=== PATIENT | female | born 1950 | race Caucasian/White ===

== ENCOUNTER 2016-08-09 18:28 | Emergency (ER) | payer OTHER ==
[2016-08-09] MEDS ORDERED: HYDROmorphone HCL/PF 1 MG/ML DISP.SYRIN IVP ONE (19:11)
[2016-08-09] MEDS ORDERED: ONDANSETRON HCL/PF 4 MG/ 2ML VIAL IVP ONE (19:11)
[2016-08-09] MEDS ORDERED: 0.9 % SODIUM CHLORIDE 1,000 ML IV ONE (19:11)
[2016-08-09 19:19] LABS: BASOPHILS % 0.4 (0.0-1.5); EOSINOPHILS % 2.2 % (0.0-6.8); LYMPHOCYTES # 1.9 # k/uL (0.6-4.0); MEAN CORPUSCULAR HEMOGLOBIN 29.3 pg (28.0-34.0); MONOCYTES # 0.3 # k/uL (0.0-0.9); NEUTROPHILS # 3.2 # k/uL (1.4-7.7)
[2016-08-09] MEDS ORDERED: 0.9 % SODIUM CHLORIDE 1,000 ML IV SCH (19:30)
[2016-08-09 19:31] LABS: eGFR (African) > 60; eGFR (Non-African) > 60
[2016-08-09] MEDS ORDERED: TAMSULOSIN HCL 0.4 MG CAP.ER.24H PO ONE (20:45)
[2016-08-09] MEDS ORDERED: PHENAZOPYRIDINE HCL 200 MG TABLET PO ONE (20:46)
[2016-08-09] MEDS ORDERED: KETOROLAC TROMETHAMINE 30 MG/1ML VIAL IVP ONE (20:46)
[2016-08-09 22:37] VITALS: BP 138/70
[2016-08-10 06:05] LABS: APPEARANCE,URINE CLEAR (CLEAR); COLOR,URINE YELLOW (YELLOW); OCCULT BLOOD,URINE 1+ (NEGATIVE); UROBILINOGEN URINE 0.2 Eu (0.2-1.0)
--- NOTE | 2016-08-10 07:31 | ED Physician Documentation ---
Abdominal Pain - HISTORIAN Historian: patient - HPI Stated Complaint: RUQ pain Chief Complaint: Abdominal Pain Additonal Information: acute onset Onset: days ago (1) Duration: sudden-onset Timing: still present Context: denies: out of country travel, bad food, recent trauma Severity: moderate Quality: sharp Front/Back of Body, Lg (Color): 1 - pain Associated Symptoms: none Exacerbated by: movements, deep breaths Relieved by: remaining still Further Comments: no - ROS CONST: no problems GI/: none CVS/RESP: none EYES/ENT: none MS/SKIN/LYMPH: none NEURO/PSYCH: none - SOCIAL HX Smoking History: quit greater than 1 year Alcohol Use: none Drug Use: none - FAMILY HX Family History: no significant history - PAST HX Past History: kidney stones Ischemic Bowel Risk Factors: none Other History: none Surgeries/Procedures: none Immunizations: referred to PCP Allergies/Adverse Reactions: Allergies Allergy/AdvReac Type Severity Reaction Status Date / Time latex Allergy Verified 08/09/16 19:09 Penicillins AdvReac Unknown Hives Verified 08/09/16 19:09 Sulfa (Sulfonamide AdvReac Unknown Hives Verified 08/09/16 19:09 Antibiotics) - VITAL SIGNS Vital Signs: Vital Signs Temp Pulse Resp BP Pulse Ox 99.7 F H 787 H 18 138/70 99 08/09/16 21:05 08/09/16 21:05 08/09/16 21:05 08/09/16 21:05 08/09/16 19:04 - REVIEWED ASSESSMENTS Nursing Assessment Reviewed: Yes Vitals Reviewed: Yes Progress - Results/Orders Results/Orders: cbc, cmp, ua, ct abdomen, amylase ordered - Progress Progress: Pt. given 1 liter of NS, 0.4 mg Flomax p.o., 200 mg Pyridium p.o., Toradol 30 mg ivp, 4 mg Zofran ivp and 1 mg Dilaudid ivp in er. Critical Care Note - Critical Care Note Total Time (mins): 0 ED Results Lab/Radiology - Lab Results Lab Results: Lab Results 08/09/16 08/09/1617 20:41 19:15 19:15 WBC RBC Hgb Hct MCV MCH MCHC RDW Plt Count Neut % (Auto) Lymph % (Auto) [place] % (Auto) Eos % (Auto) Baso % (Auto) Neut # Lymph # [place] # Eos # Baso # Reactive Lymphs % Reactive Lymphs # PT 10.3 Seconds Seconds (9.7-11.5) INR 1.0 (0.9-1.1) APTT 23.8 Seconds L Seconds (24.5-32.8) Sodium 143 mmol/L mmol/L (136-145) Potassium 3.3 mmol/L L mmol/L (3.5-5.0) Chloride 104 mmol/L mmol/L (98-110) Carbon Dioxide 31 mmol/L mmol/L (20-32) BUN 19 mg/dL mg/dL (10-26) Creatinine 0.7 mg/dL mg/dL (0.4-1.5) Estimated Creat Clear 68 Est GFR ( Amer) > 60 (60 - ) Est GFR (Non-Af Amer) > 60 (60 - ) Glucose 124 mg/dL H mg/dL (70-99) Calcium 9.8 mg/dL mg/dL (8.5-10.5) Total Bilirubin 0.3 mg/dL mg/dL (0.2-1.2) AST 23 U/L U/L (0-41) ALT 15 U/L U/L (0-45) Alkaline Phosphatase 61 U/L U/L (46-116) Total Protein 7.0 g/dL g/dL (6.0-8.5) Albumin 4.5 g/dL g/dL (3.0-5.5) Amylase 45 U/L U/L (20-104) Urine Color Yellow (YELLOW) Urine Appearance Clear (CLEAR) Urine pH 7.0 (5.0 - 8.0) Ur Specific [place] 1.010 (1.010-1.030) Urine Protein Negative mg/dL mg/dL (NEGATIVE) Urine Ketones Negative mg/dL mg/dL (NEGATIVE) Urine Occult Blood 1+ H (NEGATIVE) Urine Nitrite Negative (NEGATIVE) Urine Bilirubin Negative (NEGATIVE) Urine Urobilinogen 0.2 Eu Eu (0.2-1.0) Ur Leukocyte Esterase Negative (NEGATIVE) Urine Glucose Negative mg/dL mg/dL (NEGATIVE) 08/09/16 19:15 WBC 5.60 K/ul K/ul (4.00-12.00) RBC 4.13 M/ul M/ul (3.90-5.20) Hgb 12.1 g/dL g/dL (12.0-16.0) Hct 36.6 % % (34.5-46.5) MCV 88.8 fl fl (80.0-100.0) MCH 29.3 pg pg (28.0-34.0) MCHC 33.0 g/dL g/dL (30.0-36.0) RDW 13.0 % % (11.3-14.3) Plt Count 198 K/mm3 K/mm3 (130-400) Neut % (Auto) 56.0 % % (39.0-79.0) Lymph % (Auto) 34.3 % % (16.0-50.0) [place] % (Auto) 5.0 % % (0.0-11.0) Eos % (Auto) 2.2 % % (0.0-6.8) Baso % (Auto) 0.4 (0.0-1.5) Neut # 3.2 # k/uL # k/uL (1.4-7.7) Lymph # 1.9 # k/uL # k/uL (0.6-4.0) [place] # 0.3 # k/uL # k/uL (0.0-0.9) Eos # 0.1 # k/uL # k/uL (0.0-0.6) Baso # 0.0 # k/uL # k/uL (0.0-0.5) Reactive Lymphs % 2.1 % % (0.0-5.0) Reactive Lymphs # 0.1 # k/uL # k/uL (0.0-0.8) PT INR APTT Sodium Potassium Chloride Carbon Dioxide BUN Creatinine Estimated Creat Clear Est GFR ( Amer) Est GFR (Non-Af Amer) Glucose Calcium Total Bilirubin AST ALT Alkaline Phosphatase Total Protein Albumin Amylase Urine Color Urine Appearance Urine pH Ur Specific [place] Urine Protein Urine Ketones Urine Occult Blood Urine Nitrite Urine Bilirubin Urine Urobilinogen Ur Leukocyte Esterase Urine Glucose - Radiology Radiology Impressions: ct show 3 mm right sided renal lithiasis with mild hydroureter - Orders Orders: ED Orders Category Date Time Status Place Saline Lock/IV Now Care 08/09/16 19:[address] ABD & PELVIS W/ CON Routine Exams 08/09/16 19:13 Taken AMYLASE Routine Lab 08/09/16 19:15 Completed CBC/PLATELET/DIFF Routine Lab 08/09/16 19:15 Completed CMP Routine Lab 08/09/16 19:15 Completed PT-INR Routine Lab 08/09/16 19:15 Completed PTT Routine Lab 08/09/16 19:15 Completed UA MACRO DIP ONLY Routine Lab 08/09/16 20:41 Completed 0.9 % Sodium Chloride [Normal Saline] 1,000 ml Med 08/09/16 19:30 Discontinued IV .Q1H 0.9 % Sodium Chloride [Normal Saline] 1,000 ml Med 08/09/16 19:11 Discontinued IV Q2H HYDROmorphone HCL/PF [Dilaudid] Med 08/09/16 19:11 Discontinued 1 mg IVP NOW ONE Ketorolac Tromethamine [Toradol] Med 08/09/16 20:46 Discontinued 30 mg IVP NOW ONE Ondansetron HCl/Pf [Zofran 4 mg/2 ml] Med 08/09/16 19:11 Discontinued 8 mg IVP NOW ONE Phenazopyridine HCl [Pyridium] Med 08/09/16 20:46 Discontinued 200 mg PO NOW ONE Tamsulosin HCl [Flomax] Med 08/09/16 20:45 Discontinued 0.4 mg PO NOW ONE Abdominal Pain Physical Exam - Physical Exam General Appearance: moderate distress EENT: eye inspection normal, ENT inspection normal, pharynx normal, no signs of dehydration, RAMIRO, no nystagmus, TM's nml NECK: normal inspection, thyroid normal, supple RESPIRATORY: no resp distress, chest non-tender, breath sounds normal CVS: reg rate & rhythm, heart sounds normal, equal pulses, no murmur, no gallop , PMI nml ABDOMEN: soft, no organomegaly, normal bowel sounds, tenderness (right upper quadrant). No: rigid BACK: normal inspection, no CVA tenderness SKIN: warm/dry, normal color EXTREMITIES: non-tender, normal range of motion, no evidence of injury, no edema , edema NEURO: oriented X3, CN's nml as tested, motor nml, sensation nml, mood/affect nml, cognition normal Vital Signs: Vital Signs Temp Pulse Resp BP Pulse Ox 99.7 F H 787 H 18 138/70 99 08/09/16 21:05 08/09/16 21:05 08/09/16 21:05 08/09/16 21:05 08/09/16 19:04 Discharge Clincal Impression: Kidney stone Referrals: Madyson Snyder MD [Primary Care Provider] - 2 Days Comments: Discharged home with scripts for: toradol 10 mg # 12 1 pill 4x/day, flomax 0.4 mg # 3 1 pill daily, pyridium 200 mg #15 1 pill 3x/day. Condition: Stable Disposition: 01 HOME, SELF-CARE Decision to Admit: NO Decision Time: 21:00
--- NOTE | 2016-08-10 11:13 | Diagnostic Imaging Report ---
RIDDHI DON [facility] [address] [facility].[address] [address] Report Submission Date: Aug 09, 2016 8:22:45 PM CRISIS SPECIALIST Patient Study Name: TARSHA WATSON Date: Aug 09, 2016 8:02:49 PM CRISIS SPECIALIST Modality Type: CT\SR Gender: F Description: CT ABD & PELVIS W/ CON : 54 Institution: [facility] Physician: RIDDHI DON CT abdomen and pelvis with contrast. History:RIGHT SIDED ABDOMINAL PAIN Technique: Transaxial computed tomographic images of the abdomen and pelvis were obtained following administration of intravenous contrast according to standard protocol. Findings: The lung bases are clear. The heart size is normal. There is a 2.9 cm mass within the inferior aspect of the right breast, only partially imaged. The liver, gallbladder, pancreas, spleen, and adrenal glands are normal. There is a 3 mm calculus at the right ureterovesicular junction resulting in right hydroureter and hydronephrosis. Additional scattered small 2 to 3 mm calculus and present within the right renal pelvis and intrarenal calyces. The left kidney is largely unremarkable tiny 5 mm cyst noted. There is evidence of previous colectomy with diverting ostomy in the right lower quadrant. No bowel dilation or obstruction. There is atherosclerosis of the aorta. No adenopathy is present. There is no free fluid. The uterus is absent. Bone windows filled and demonstrate evidence of suspicious lytic or blastic lesion. Impression: 1. 3 mm right ureterovesicular junction calculus resulting in right hydroureter and hydronephrosis. 2. Additional right small intrarenal calculi noted. 3. 2.9 cm right breast mass, partially imaged, clinical examination and mammographic correlation recommended. 4. Status post colectomy with a diverting right lower quadrant ostomy. Electronically signed on Aug 09, 2016 8:22:45 PM CRISIS SPECIALIST by: Jose FARIA
== END 2016-08-09 21:05 | disposition home or self-care (01) ==
LOC: ED 18:28
DX: N20.0 Calculus of kidney (principal)
CPT/HCPCS: 74177; 80053; 81002; 82150; 85025; 85610; 85730; J1170; J1885; J2405; J7030; Q9966; 96361; 96374; 96375; 99283; 99284; S1016

== ENCOUNTER 2016-08-23 09:50 | Outpatient (CLI) | payer OTHER ==
--- NOTE | 2016-08-23 16:02 | Diagnostic Imaging Report ---
MELANIE GATES [facility] [address] [facility] [address] [place], [place]. [address] Report Submission Date: Aug 23, 2016 3:23:27 PM CATTLE EXAMINER Patient Study Name: TARSHA WATSON Date: Aug 23, 2016 10:10:18 AM CATTLE EXAMINER Modality Type: CT\SR Gender: F Description: CT ABD & PELVIS W/O CO : 54 Institution: [facility] Physician: MELANIE GATES Computed tomography of the abdomen and pelvis without contrast History: Followup kidney stones and obstructive uropathy Findings: Transverse abdomen and pelvis sections are obtained without contrast and are compared to the August 09, 2016 scan. A right breast implant is partially visualized. At least 5 right renal stones are present, the largest measuring 4 mm in maximal dimension. Right hydroureteronephrosis has resolved. The liver, adrenals, pancreas, left kidney, spleen, and mesenteric structures are normal. The gallbladder is partially contracted. Mild aortoiliac atherosclerosis, colectomy, and ileostomy are edema noted. Pelvic sections reveal interval passage of a right ureterovesical junction stone. Hysterectomy has been performed. The urinary bladder is decompressed. Impression: 1. Interval passage of obstructing right ureterovesical junction stone with resolution of right hydroureteronephrosis. 2. Right nephrolithiasis. 3. Postoperative changes as described. Electronically signed on Aug 23, 2016 3:23:27 PM CATTLE EXAMINER by: Cesar FARIA
== END 2016-08-23 09:52 ==
LOC: RAD 09:50
PROVIDERS: ATTEND Family Medicine
DX: N20.0 Calculus of kidney (principal)
CPT/HCPCS: 74176

== ENCOUNTER 2017-05-05 10:07 | Emergency (ER) | payer OTHER ==
--- NOTE | 2017-05-05 10:45 | ED Physician Documentation ---
Lower Extremity Problem - HISTORIAN Historian: patient - HPI Stated Complaint: Left hip pain Chief Complaint: Lower Extremity Problem Additional Information: severe pain lt hip and pelvis. pt has chronic low back and hip/pelvic pain went to chiropractor 04-29-17 had exq uisite lpain w/tx worse afterward-now unable walk or stand w/o pain. pt sees chiro freq and he usually does good job Location of Injury: L hip, other (pelvis) Timing: still present, persistent since (chiro tx has been worse) Duration: sudden-Onset (acute but chronic beforehand-takes 1/4 of [employer] 5/325 w/ o much help) Severity: moderate Quality: pain, tenderness. denies: swelling, numbness, tingling Exacerbated By: walking, movement (and palpation-includes palp of hip and pelvis both on pelvic stretch and palp pubes) Associated Symptoms: denies: chest pain, shortness of breath, rapid heart rate - ROS CONST: no problems CVS/RESP: none. denies: chest pain, shortness of breath, cough GI/: none NERUO/PSYCH: difficulty walking, anxiety. 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 disease, diabetes Type 1 Allergies/Adverse Reactions: Allergies Allergy/AdvReac Type Severity Reaction Status Date / Time latex Allergy Verified 05/05/17 10:25 Penicillins AdvReac Unknown Hives Verified 05/05/17 10:25 Sulfa (Sulfonamide AdvReac Unknown Hives Verified 05/05/17 10:25 Antibiotics) - SOCIAL HX Smoking History: non-smoker Alcohol Use: rarely Drug Use: none - FAMILY HX Family History: no significant history - VITAL SIGNS Vital Signs: Vital Signs Temp Pulse Resp BP Pulse Ox 98.4 F 90 19 152/80 98 05/05/17 10:28 05/05/17 10:28 05/05/17 10:28 05/05/17 10:28 05/05/17 10:28 - REVIEWED ASSESSMENTS Nursing Assessment Reviewed: Yes Vitals Reviewed: Yes ED Results Lab/Radiology - Radiology Radiology Impressions: rad says no fracture but if not sig better see ortho and suggest mri - Orders Orders: ED Orders Category Date Time Status CT PELVIS W/O CONTRAST Stat Exams 05/05/17 Taken Ketorolac Tromethamine [Toradol] Med 05/05/17 11:09 Discontinued 60 mg .ROUTE .STK-MED ONE Lower Extremity Problem - EXAM General Appearance: moderate distress Hips: left hip: non-tender Neuro/Tendon: normal sensation, normal motor functions, no evidence tendon injury RESPIRATORY: no resp distress, chest non-tender, breath sounds normal. No: wheezes, rales, rhonchi CVS: reg rate & rhythm, heart sounds normal, PMI nml, no JVD JOINT: joints nml (xc lt hip) VASCULAR: no vascular compromise NEURO/PSYCH: oriented X3, sensation nml, mood/affect nml SKIN: warm/dry, normal color. No: cyanosis, diaphoresis, jaundice BACK: no CVA tenderness (liza lt lumbar) Discharge Clincal Impression: lt hip and pervic pain-poss fx Referrals: Sharmila Hutchinson, PRN [Primary Care Provider] - 2 Days Comments: home ibu 600 tid w/ mylanta and after meals or milk and mylanta Condition: Good Disposition: 01 HOME, SELF-CARE Decision to Admit: NO Decision Time: 12:00
[2017-05-05] MEDS: KETOROLAC TROMETHAMINE 60 MG/2 ML VIAL ONE (11:14)
[2017-05-05 12:28] VITALS: BP 122/68
--- NOTE | 2017-05-05 12:49 | Diagnostic Imaging Report ---
[facility] [address] [facility] [address] [place], [place]. [address] Report Submission Date: May 05, 2017 11:25:17 AM SENIOR SUPPORT ANALYST Patient Study Name: TARSHA WATSON Date: May 05, 2017 10:55:30 AM SENIOR SUPPORT ANALYST Modality Type: CT\SR Gender: F Description: CT PELVIS W/O CONTRAST : 54 Institution: [facility] Physician: POLO OCHOA - ER Examination: CT pelvis History: Hip discomfort Comparison exams: None available Technique: Axial imaging with sagittal and coronal reconstruction. Findings: Osseous cortical margins of the femoral head, neck, intertrochanteric region, and proximal femoral shaft are intact. Acetabular margin also without evidence for cortical abnormality. No dislocation. Superior and inferior pubic rami and iliac wing are without abnormality. Right hip articulation without abnormality. Sacroiliac joints and lower lumbar regions without acute appearing process. No abnormal angulation of the sacrococcygeal region. Soft tissue structures, as visualized, without gross abnormality. Pelvic surgical clips. Right pelvic region ostomy. Impression: No evidence for acute osseous process. If discomfort persists, consider obtaining MRI to evaluate soft tissues. Electronically signed on May 05, 2017 11:25:17 AM SENIOR SUPPORT ANALYST by: Fab FARIA
== END 2017-05-05 12:26 | disposition home or self-care (01) ==
LOC: ED 10:07
DX: R10.2 Pelvic and perineal pain (principal); M25.552 Pain in left hip
CPT/HCPCS: 72192; J1885; 96372; 99283